=== PATIENT | male | born 1975 | race Caucasian/White ===

== ENCOUNTER 2016-09-11 01:01 | Emergency (ER) | payer BC, OTHER ==
[~2016-09-11] VITALS: Ht 175.3 cm; Wt 66.0 kg
[2016-09-11 01:08] VITALS: BP 138/91; PULSE 78; RESP 18; TEMP 97.9; O2SAT 100
[2016-09-11 01:17] VITALS: BP 138/91; PULSE 84; RESP 18; O2SAT 95
--- NOTE | 2016-09-11 01:40 | PD ---
HPI Chief Complaint: Psychiatric Symptoms Time Seen by Provider: 01:28 Travel History International Travel<30 days: No Contact w/Intl Traveler<30days: No Traveled to known affect area: No History of Present Illness HPI 41-year-old male presents under Dimas act initiated by the police department. The patient reports that he was involved in an argument with his sister. He reports that his sister called the police and he was placed under Dimas act. Reportedly he told his sister "I would rather blow my head off than fight with you anymore." He doesn't want to elaborate additionally on the circumstances of the argument or the situation. He does say that he was not feeling suicidal and he has never felt suicidal. He simply said that statement in the heat of an argument. He admits to drinking 5 beers tonight. Denies any drug use. Denies any psychiatric history. He has no medical complaints at this time. [facility]LY [facility] Past Medical History Medical History: Denies Significant Hx Diminished Hearing: Yes Tetanus Vaccination: Unknown Influenza Vaccination: No Past Surgical History Surgical History: No Previous Surgery Social History Alcohol Use: Yes (1-2X WEEK) Tobacco Use: Yes (1/2 PPD) Substance Use: No Allergies-Medications (Allergen,Severity, Reaction): Coded Allergies: No Known Allergies (Unverified , 09/11/16) Reported Meds & Prescriptions Reported Meds & Active Scripts Active No Active Prescriptions or Reported Medications Review of Systems Except as stated in HPI: all other systems reviewed are Neg Physical Exam Narrative GENERAL: Well-developed well-nourished male in no acute distress SKIN: Warm and dry. HEAD: Atraumatic. Normocephalic. EYES: Pupils equal and round. No scleral icterus. No injection or drainage. ENT: No nasal bleeding or discharge. Mucous membranes pink and moist. NECK: Trachea midline. No JVD. CARDIOVASCULAR: Regular rate and rhythm. No murmur appreciated. RESPIRATORY: No accessory muscle use. Clear to auscultation. Breath sounds equal bilaterally. GASTROINTESTINAL: Abdomen soft, non-tender, nondistended. MUSCULOSKELETAL: No obvious deformities. NEUROLOGICAL: Awake and alert. No obvious cranial nerve deficits. Motor grossly within normal limits. Normal speech. PSYCHIATRIC: Appropriate mood and affect; insight and judgment normal. Data Data Last Documented VS Vital Signs Date Time Temp Pulse Resp B/P Pulse Ox O2 Delivery O2 Flow Rate FiO2 09/11/16 01:17 84 18 138/91 95 Room Air 09/11/16 01:08 97.9 Orders Complete Blood Count With Diff (09/11/16 01:38) Comprehensive Metabolic Panel (09/11/16 01:38) Psych Screen (09/11/16 01:38) Drug Screen, Random Urine (09/11/16 01:38) Alcohol (Ethanol) (09/11/16 01:38) Salicylates (Aspirin) (09/11/16 01:38) Tylenol (Acetaminophen) (09/11/16 01:38) Labs Laboratory Tests Test 09/11/16 01:55 White Blood Count 8.8 TH/MM3 Red Blood Count 5.08 MIL/MM3 Hemoglobin 16.7 GM/DL Hematocrit 47.7 % Mean Corpuscular Volume 93.9 FL Mean Corpuscular Hemoglobin 32.8 PG Mean Corpuscular Hemoglobin 35.0 % Concent Red Cell Distribution Width 12.4 % Platelet Count 226 TH/MM3 Mean Platelet Volume 7.3 FL Neutrophils (%) (Auto) 58.2 % Lymphocytes (%) (Auto) 29.6 % Monocytes (%) (Auto) 6.6 % Eosinophils (%) (Auto) 4.4 % Basophils (%) (Auto) 1.2 % Neutrophils # (Auto) 5.1 TH/MM3 Lymphocytes # (Auto) 2.6 TH/MM3 Monocytes # (Auto) 0.6 TH/MM3 Eosinophils # (Auto) 0.4 TH/MM3 Basophils # (Auto) 0.1 TH/MM3 CBC Comment DIFF FINAL Differential Comment Sodium Level 142 MEQ/L Potassium Level 4.2 MEQ/L Chloride Level 106 MEQ/L Carbon Dioxide Level 28.0 MEQ/L Anion Gap 8 MEQ/L Blood Urea Nitrogen 4 MG/DL Creatinine 1.03 MG/DL Estimat Glomerular Filtration 80 ML/MIN Rate Random Glucose 85 MG/DL Calcium Level 8.4 MG/DL Total Bilirubin 0.3 MG/DL Aspartate Amino Transf 39 U/L (AST/SGOT) Alanine Aminotransferase 30 U/L (ALT/SGPT) Alkaline Phosphatase 70 U/L Total Protein 7.5 GM/DL Albumin 4.0 GM/DL Salicylates Level 5.1 MG/DL Urine Opiates Screen NEG Acetaminophen Level LESS THAN 2.0 MCG/ML Urine Barbiturates Screen NEG Urine Amphetamines Screen NEG Urine Benzodiazepines Screen NEG Urine Cocaine Screen NEG Urine Cannabinoids Screen POS Ethyl Alcohol Level 317 MG/DL MDM Medical Decision Making Medical Screen Exam Complete: Yes Emergency Medical Condition: Yes Medical Record Reviewed: Yes Differential Diagnosis Substance-induced disorder, major depressive disorder, acute psychosis, adjustment reaction Narrative Course 41-year-old male presents under Dimas act for psychiatric evaluation. Mental health screening discussed with the patient. Psychiatric screen ordered. Lab work is been reviewed. His toxicology screen is positive for cannabinoids. Alcohol screen is 317. He is medically cleared. Diagnosis Primary Impression: Adjustment reaction Qualified Code: F43.20 - Adjustment disorder, unspecified type Scripts No Active Prescriptions or Reported Meds Elijah See Sep 11, 2016 01:40
[2016-09-11 02:02] LABS: AUTOMATED NEUTROPHIL # 5.1 TH/MM3 (1.8-7.7); BASOPHIL # 0.1 TH/MM3 (0-0.2); BASOPHIL % 1.2 % (0.0-2.0); EOSINOPHIL # 0.4 TH/MM3 (0-0.4); EOSINOPHIL % 4.4 % (0.0-4.0); HEMATOCRIT 47.7 % (39.0-51.0); HEMO FLAGS DIFF FINAL; LYMPH % 29.6 % (9.0-44.0); LYMPHOCYTE # 2.6 TH/MM3 (1.0-4.8); MEAN CELL VOLUME 93.9 FL (80.0-100.0); MEAN CORPUSCULAR HEMOGLOBIN 32.8 PG (27.0-34.0); MONO % 6.6 % (0.0-8.0); NEUT % 58.2 % (16.0-70.0); PLATELET COUNT 226 TH/MM3 (150-450); RED BLOOD COUNT 5.08 MIL/MM3 (4.50-5.90); RED CELL DISTRIBUTION WIDTH 12.4 % (11.6-17.2); WHITE BLOOD COUNT 8.8 TH/MM3 (4.0-11.0)
[2016-09-11 02:43] LABS: AMPHETAMINE, URINE NEG (NEG); BARBITURATES, URINE NEG (NEG); COCAINE, URINE NEG (NEG)
[2016-09-11 02:50] LABS: ALT (GPT) 30 U/L (12-78); ANION GAP 8 MEQ/L (5-15); AST (GOT) 39 U/L (15-37); BLOOD UREA NITROGEN 4 MG/DL (7-18); CHLORIDE 106 MEQ/L (98-107); GLOMERULAR FILTRATION RATE 80 ML/MIN (>89); POTASSIUM 4.2 MEQ/L (3.5-5.1); SODIUM (NA) 142 MEQ/L (136-145)
[2016-09-11 02:52] LABS: ALKALINE PHOSPHATASE 70 U/L (45-117); TOTAL BILIRUBIN ADULT 0.3 MG/DL (0.2-1.0)
[2016-09-11 02:57] LABS: ACETAMINOPHEN LESS THAN 2.0 MCG/ML (10.0-30.0)
[2016-09-11 06:30] VITALS: BP 102/66; PULSE 107; RESP 20; O2SAT 95
[2016-09-11 10:24] VITALS: BP 132/56; PULSE 77; RESP 18; O2SAT 97
[2016-09-11 17:33] VITALS: BP 148/89; PULSE 77; RESP 18; O2SAT 97
[2016-09-11 23:09] VITALS: BP 158/95; PULSE 85; RESP 17; O2SAT 96
[2016-09-12 02:00] VITALS: BP 134/87; PULSE 86; RESP 18; O2SAT 97
[2016-09-12 06:42] VITALS: BP 143/85; PULSE 79; RESP 19; O2SAT 99
--- NOTE | 2016-09-12 09:34 | PD ---
History of Present Illness Chief Complaint: Psychiatric Symptoms Time Seen by Provider: 09:05 Travel History International Travel<30 Days: No Contact w/Intl Traveler<30days: No Known affected area: No Legal Status Legal Status: Dimas Act Dimas Act Signed By: Isaiah Cristobal History of Present Illness: History of Present Illness HPI 41-year-old male with no previous psychiatric history who presents under Dimas act initiated by the police department. As per the report " The police were dispatched to the subject's home where he was making suicidal statements to family members. He made statements to his sister that he was going to blow his head off and it is alleged that he also called other family members telling them good bye'. Patient denied any suicidal statements or feelings to ed provider as well as to nursing staff here in [facility]. The patient has been monitored for over 24 hours with no behavioral concerns and no suicidality. EMR is reviewed. The patient has had no previous contact [place] [facility] [place] Current toxicology is positive for cannabinoids as well as BAL of 317 on admission to ED. Patient is seen in [facility]. Awake, alert and oriented. Patient with hearing difficulty but communicates well. He is calm, engaging and cooperative. His speech is clear. he is clinically sober. There is no evidence of nay psychosis, no sanket. Patient denies any significant depression. Is anxious about being here. Patient continues to deny any suicidal ideation, intent or plan. he denies any previous suicidal attempts. He provides consistent information regarding events leading to his sister calling the police. they were arguing about him not communicating with his siblings and he does admits to making the statement :' I would rather blow my brains out than call him". Patient also intoxicated at the time of such argument. No hx of violence . PFSH Past Medical History Medical History: Denies Significant Hx Diminished Hearing: Yes Tetanus Vaccination: Unknown Influenza Vaccination: No Past Surgical History Surgical History: No Previous Surgery Psychiatric History Psychiatric History Hx Psychiatric Treatment: Patient stated that he was Dimas Acted once before in [place], [place] a couple of years ago also after an argument with his sisiter. He otherwise denies any Hx of psychiatric tx. History of Inpatient Treatment: Yes Guns or firearms in home: No Social History Single male. Lives by himself. works in [employer]. Hx Alcohol Use: Yes (1-2X WEEK) Hx Tobacco Use: Yes (1/2 PPD) Hx Substance Use: No (Patient denies.) Substance Use Type: Alcohol, Marijuana, Nicotine/Cigarettes Hx of Substance Use Treatment: No Family Psychiatric History None reported Allergies-Medications (Allergen,Severity, Reaction): Coded Allergies: No Known Allergies (Unverified , 09/11/16) Reported Meds & Prescriptions Reported Meds & Active Scripts Active No Active Prescriptions or Reported Medications Review of Systems Except as stated in HPI: all other systems reviewed are Neg Ears, nose, mouth, throat: COMPLAINS OF: Hearing loss Psychiatric: DENIES: Anxiety, Confusion, Mood changes, Depression, Hallucinations, Agitation, Suicidal Ideation, Homicidal Ideation, Delusions Exam Alert: Yes Chestnut: Person (ox4) Mood: Anxious, Calm Affect: Appropriate Speech: Clear, Logical Eye Contact: Normal Memory Intact: Comment (no impairmetn) Hallucinations: Other (neagtive) Delusions: No Suicidal: Ideation (deneis any ) Homicidal: Ideation (deneis any) Insight/Judgement Fair . Not impaired MDM Medical Decision Making Medical Record Reviewed: Yes Assessment/Plan 41 year old male with no previous psychiatric history who in context of alcohol intoxication as well as being involved in a telephone argument with his sister made a statement " that he would rather blow his brains out". Patient denies any suicidal ideation, intent or plan. patient has been monitored here for over 24 hours and has not presented any suicidality or behavioral concern. Patient has been consistent in his explanations of events. Patient is future oriented and states " I will never harm myself. I love my life. " He is future oriented. At this time I find no criteria to continue to retain this patient as he does not meet BA criteria. I have provided psychoeducation. I have advised him if any changes that he can return to ED. Orders Diet Regular Basic (09/11/16 Lunch) Diet Regular Basic (09/11/16 Dinner) Diet Regular Basic (09/12/16 Breakfast) Results Vital Signs Date Time Temp Pulse Resp B/P Pulse Ox O2 Delivery O2 Flow Rate FiO2 09/12/16 06:42 79 19 143/85 99 Room Air 09/12/16 02:00 86 18 134/87 97 Room Air 09/11/16 23:09 85 17 158/95 96 Room Air 09/11/16 17:33 77 18 148/89 97 Room Air 09/11/16 10:24 77 18 132/56 97 Room Air Diagnosis Primary Impression: Adjustment reaction Additional Impression: Alcohol intoxication Psychiatrically Cleared: Yes Med/ Other Pt Specific Info: No Meds Exist/No RX given Prescriptions No Active Prescriptions or Reported Meds Disposition: 01 DISCHARGE HOME Condition: Stable Problem Qualifiers Primary Impression: Adjustment reaction Qualified Code: F43.20 - Adjustment disorder, unspecified type Additional Impression: Alcohol intoxication Qualified Code: F10.120 - Alcohol intoxication, uncomplicated Morenita Vargas Sep 12, 2016 09:34
== END 2016-09-12 10:30 | disposition home or self-care (01) ==
LOC: NEPE 01:01 → NEPJ 09-12 10:30
DX: F43.20 Adjustment disorder, unspecified (principal); F10.120 Alcohol abuse with intoxication, uncomplicated; Y90.8 Blood alcohol level of 240 mg/100 ml or more
CPT/HCPCS: 80053; 80307; 85025; 99284